=== PATIENT | male | born 1965 | race Caucasian/White ===

== ENCOUNTER 2021-08-09 21:55 | Emergency (ER) | payer BC ==
[2021-08-09] MEDS ORDERED: FENTANYL CITR 100 MCG/2 ML ONE (23:15)
[2021-08-09] MEDS ORDERED: ONDANSETRON 4 MG/2 ML VIAL ONE (23:15)
[2021-08-09 23:28] LABS: Absolute Lymphocytes (CBC) 1.2 K/uL (0.7-4.9); Lymphocytes % 12.1 % (15.3-44.8); MCV 89.9 fL (80-100); MPV 6.9 fL (7.6-11.3); RBC Red Blood Cell Count 4.56 M/uL (4.33-5.43)
[2021-08-09 23:59] LABS: Albumin 3.9 g/dL (3.4-5.0); Bilirubin Total 0.4 mg/dL (0.2-1.0); Potassium 4.2 mmol/L (3.5-5.1)
[2021-08-10 00:32] LABS: Urine Blood 3+ (Negative); Urine Glucose Negative (Negative); Urine Protein Negative (Negative); Urine pH 5.5 (5.0-7.0)
--- NOTE | 2021-08-10 02:58 | ER ---
Nurse's Notes [facility] Name: Etienne Mack IV Age: 56 yrs Sex: Male : 1965 Arrival Date: 08/09/2021 Time: 22:03 Bed 18 Private MD: Diagnosis: Lower abdominal pain, unspecified;Hydronephrosis with renal and ureteral calculous obstruction-3 mm left UVJ Presentation: 08/09 22:09 Chief complaint: Patient states: "I have been feeling bad all day. I thought it was the tw5 heat, but around 6:30 I drank a little bit of water. I got really nauseous and clammy. Now I am having intense sharp crampy pain in my abdomen, the pain has radiated to my lower back.". Coronavirus screen: Vaccine status:. Ebola Screen: Patient negative for fever greater than or equal to 101.5 degrees Fahrenheit, and additional compatible Ebola Virus Disease symptoms Patient denies exposure to infectious person. Patient denies travel to an Ebola-affected area in the 21 days before illness onset. Initial Sepsis Screen: Does the patient meet any 2 criteria? No. Patient's initial sepsis screen is negative. Does the patient have a suspected source of infection? No. Patient's initial sepsis screen is negative. Risk Assessment: Do you want to hurt yourself or someone else? Patient reports no desire to harm self or others. Onset of symptoms was August 09, 2021 at 18:30. 22:09 Method Of Arrival: Ambulatory tw5 22:09 Acuity: COURTNEY 3 tw5 Triage Assessment: 22:13 General: Appears uncomfortable, Behavior is calm, cooperative, appropriate for age. tw5 Pain: Complains of pain in abdomen Pain currently is 9 out of 10 on a pain scale. GI: Reports nausea. 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 - Social history:: Smoking status: Patient denies any tobacco usage or history of. Screenin/03 02:47 Abuse screen: Denies threats or abuse. Nutritional screening: No deficits noted. ll3 Tuberculosis screening: No symptoms or risk factors identified. Fall Risk No fall in past 12 months (0 pts). No secondary diagnosis (0 pts). IV access (20 points). Ambulatory Aid- None/Bed Rest/Nurse Assist (0 pts). Gait- Normal/Bed Rest/Wheelchair (0 pts) Mental Status- Oriented to own ability (0 pts). Total Orozco Fall Scale indicates No Risk (0-24 pts). Assessment: 08/09 22:39 General: Appears uncomfortable, Behavior is calm, cooperative. Pain: Complains of pain ll3 in left lower quadrant and right lower quadrant Pain currently is 8 out of 10 on a pain scale. Neuro: Level of Consciousness is awake, alert, obeys commands, Oriented to person, place, time, situation. Respiratory: Respiratory effort is even, unlabored, Respiratory pattern is regular, symmetrical. GI: Bowel sounds present X 4 quads. Abdomen is tender to palpation in right lower quadrant and left lower quadrant Reports nausea, "my abdomen feels hard as a rock". 23:39 Reassessment: No changes from previously documented assessment. Patient and/or family ll3 updated on plan of care and expected duration. Pain level reassessed. Patient is alert, oriented x 3, equal unlabored respirations, skin warm/dry/pink. 08/10 00:24 Reassessment: No changes from previously documented assessment. Patient and/or family ll3 updated on plan of care and expected duration. Pain level reassessed. Patient is alert, oriented x 3, equal unlabored respirations, skin warm/dry/pink. 01:30 Reassessment: No changes from previously documented assessment. Patient and/or family ll3 updated on plan of care and expected duration. Pain level reassessed. Patient is alert, oriented x 3, equal unlabored respirations, skin warm/dry/pink. 02:32 Reassessment: No changes from previously documented assessment. Patient and/or family ll3 updated on plan of care and expected duration. Pain level reassessed. Patient is alert, oriented x 3, equal unlabored respirations, skin warm/dry/pink. Vital Signs: 08/09 22:09 BP 166 / 100; Pulse 93; Resp 12; Temp 98.2; Pulse Ox 99% ; Weight 122.47 kg; Height 5 tw5 ft. 10 in. (177.80 cm); Pain 9/10; 23:00 BP 155 / 84; Pulse 78; Resp 16; Pulse Ox 96% on R/A; ll3 0703 00:24 BP 171 / 98; Pulse 84; Resp 17; Pulse Ox 95% on R/A; ll3 01:30 BP 166 / 83; Pulse 65; Resp 16; Pulse Ox 96% on R/A; ll3 02:32 BP 165 / 85; Pulse 72; Resp 16; Pulse Ox 96% on R/A; ll3 04:22 BP 140 / 76; Pulse 77; Resp 16; Pulse Ox 97% on R/A; ll3 08/09 22:09 Body Mass Index 38.74 (122.47 kg, 177.80 cm) tw5 ED Course: 08/09 22:03 Patient arrived in ED. am2 22:12 Triage completed. tw5 22:13 Arm band placed on left wrist. tw5 22:30 Juan Osborne PA is PHCP. [facility] 22:30 Davon Hampton MD is Attending Physician. [facility] 23:00 No provider procedures requiring assistance completed. Inserted saline lock: 22 gauge ll3 in right antecubital area, using aseptic technique. Blood collected. 08/10 00:24 Hedy Win, RN is Primary Nurse. 3 01:34 CT Abd/Pelvis - IV Contrast Only In Process Unspecified. EDMS 02:47 Patient has correct armband on for positive identification. Bed in low position. Call ll3 light in reach. Side rails up X 1. Adult w/ patient. 02:57 Higinio Ponce MD is Referral Physician. mony 04:21 IV discontinued, intact, bleeding controlled, No redness/swelling at site. Pressure ll3 dressing applied. Administered Medications: 08/09 23:24 Drug: Zofran (Ondansetron) 4 mg Route: IVP; Site: right antecubital; ll3 08/10 00:46 Follow up: Response: No adverse reaction 3 08/09 23:24 Drug: fentaNYL (PF) 50 mcg Route: IVP; Site: right antecubital; ll3 08/10 00:46 Follow up: Response: No adverse reaction; Marked relief of symptoms ll3 03:15 Drug: Flomax (tamsulosin) 0.4 mg Route: PO; ll3 04:20 Follow up: Response: No adverse reaction ll3 03:15 Drug: Cipro (ciprofloxacin) 500 mg Route: PO; ll3 04:20 Follow up: Response: No adverse reaction ll3 03:20 Drug: Ketorolac 30 mg Route: IVP; Site: right antecubital; ll3 04:21 Follow up: Response: No adverse reaction ll3 03:22 Drug: NS 0.9% 1000 ml Route: IV; Rate: 1 bolus; Site: right antecubital; ll3 04:21 Follow up: Response: No adverse reaction; IV Status: Completed infusion; IV Intake: ll3 1000ml Medication: 02:48 VIS not applicable for this client. ll3 Intake: 04:21 IV: 1000ml; Total: 1000ml. ll3 Outcome: 02:58 Discharge ordered by MD. sykes 04:21 Discharged to home ambulatory, with significant other. ll3 04:21 Condition: stable 04:21 Discharge instructions given to patient, significant other, Instructed on discharge instructions, follow up and referral plans. medication usage, Demonstrated understanding of instructions, follow-up care, medications, Prescriptions given X 4. 04:22 Patient left the ED. ll3 Signatures: Dispatcher [employer] Davon Schafer MD MD cha Mickail, Joel, PA PA jmm Moreno, Amanda am2 Wood, Tiffany tw5 Hedy Win RN RN ll3
--- NOTE | 2021-08-10 02:59 | EDPHYS ---
Physician Documentation [facility] Name: Etienne Mack IV Age: 56 yrs Sex: Male : 1965 Arrival Date: 08/09/2021 Time: 22:03 Bed 18 Private MD: TERA Physician Davon Hampton HPI: 08/10 00:58 This 56 yrs old Male presents to ER via Ambulatory with complaints of Abdominal Pain, jmm Back Pain, Fever, Nausea. 00:58 The patient presents with abdominal pain. Onset: The symptoms/episode began/occurred jmm acutely, today, at 16:00. The symptoms radiate to Associated signs and symptoms: Pertinent positives: dysuria, testicular pain, Pertinent negatives: vomiting. Patient states developed lower abdominal pain, nausea around 4 pm. Unable to have bowel movement. Pain is intense and intermittent and never completely resolved. Denies similar episodes in the past. 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 - Social history:: Smoking status: Patient denies any tobacco usage or history of. ROS: 08/10 00:58 Constitutional: Negative for fever, chills, and weight loss, Cardiovascular: Negative jmm for chest pain, palpitations, and edema, Respiratory: Negative for shortness of breath, cough, wheezing, and pleuritic chest pain. Abdomen/GI: Positive for abdominal pain. Back: Positive for radiated pain. All other systems are negative. Exam: 00:58 Constitutional: This is a well developed, well nourished patient who is awake, alert, jmm and in no acute distress. Head/Face: atraumatic. Eyes: EOMI, no conjunctival erythema appreciated ENT: Moist Mucus Membranes Neck: Trachea midline, Supple Chest/axilla: Normal chest wall appearance and motion. Cardiovascular: Regular rate and rhythm. No edema appreciated Respiratory: Normal respirations, no respiratory distress appreciated 00:58 Back: Normal ROM Skin: General appearance color normal MS/ Extremity: Moves all extremities, no obvious deformities appreciated, no edema noted to the lower extremities Neuro: Awake and alert Psych: Behavior is normal, Mood is normal, Patient is cooperative and pleasant 00:58 Abdomen/GI: Inspection: abdomen appears normal, Bowel sounds: normal, Palpation: soft, mild abdominal tenderness, in the right lower quadrant and left lower quadrant. Vital Signs: 08/09 22:09 BP 166 / 100; Pulse 93; Resp 12; Temp 98.2; Pulse Ox 99% ; Weight 122.47 kg; Height 5 tw5 ft. 10 in. (177.80 cm); Pain 9/10; 23:00 BP 155 / 84; Pulse 78; Resp 16; Pulse Ox 96% on R/A; ll3 08/10 00:24 BP 171 / 98; Pulse 84; Resp 17; Pulse Ox 95% on R/A; ll3 01:30 BP 166 / 83; Pulse 65; Resp 16; Pulse Ox 96% on R/A; ll3 02:32 BP 165 / 85; Pulse 72; Resp 16; Pulse Ox 96% on R/A; ll3 04:22 BP 140 / 76; Pulse 77; Resp 16; Pulse Ox 97% on R/A; ll3 08/09 22:09 Body Mass Index 38.74 (122.47 kg, 177.80 cm) tw5 MDM: 08/09 22:30 Patient medically screened. [facility] 08/10 01:17 Data reviewed: vital signs, nurses notes. [facility] 08/09 22:31 Order name: CBC with Diff; Complete Time: 23:38 [facility] 08/09 22:31 Order name: CMP; Complete Time: 00:02 [facility] 08/09 22:31 Order name: Lipase; Complete Time: 00:02 [facility] 08/09 22:31 Order name: CT Abd/Pelvis - IV Contrast Only [facility] 08/10 00:32 Order name: Urine Dipstick-Ancillary; Complete Time: 00:33 [facility] 08/09 22:31 Order name: IV Saline Lock; Complete Time: 23:24 [facility] 08/09 22:31 Order name: Labs collected and sent; Complete Time: 23:24 [facility] 08/09 22:31 Order name: Urine Dipstick-Ancillary (obtain specimen); Complete Time: 00:47 [facility] Administered Medications: 08/09 23:24 Drug: Zofran (Ondansetron) 4 mg Route: IVP; Site: right antecubital; ll3 08/10 00:46 Follow up: Response: No adverse reaction ll3 08/09 23:24 Drug: fentaNYL (PF) 50 mcg Route: IVP; Site: right antecubital; ll3 08/10 00:46 Follow up: Response: No adverse reaction; Marked relief of symptoms ll3 03:15 Drug: Flomax (tamsulosin) 0.4 mg Route: PO; ll3 04:20 Follow up: Response: No adverse reaction ll3 03:15 Drug: Cipro (ciprofloxacin) 500 mg Route: PO; ll3 04:20 Follow up: Response: No adverse reaction ll3 03:20 Drug: Ketorolac 30 mg Route: IVP; Site: right antecubital; ll3 04:21 Follow up: Response: No adverse reaction ll3 03:22 Drug: NS 0.9% 1000 ml Route: IV; Rate: 1 bolus; Site: right antecubital; ll3 04:21 Follow up: Response: No adverse reaction; IV Status: Completed infusion; IV Intake: ll3 1000ml Disposition Summary: 08/10/21 02:58 Discharge Ordered Location: Home mony Problem: new mony Symptoms: have improved mony Condition: Stable mony Diagnosis - Lower abdominal pain, unspecified mony - Hydronephrosis with renal and ureteral calculous obstruction - 3 mm left UVJ mony Followup: [facility] - With: Private Physician - When: 2 - 3 days - Reason: Recheck today's complaints, Continuance of care, Re-evaluation by your physician Followup: mony - With: Higinio Ponce MD - When: 2 - 3 days - Reason: Recheck today's complaints, Re-evaluation by your physician Discharge Instructions: - Flank Pain, Adult mony - Kidney Stones mony - Discharge Summary Sheet [facility] - Kidney Stones, [id number] mony - Hydronephrosis mony - Dietary Guidelines to Help Prevent Kidney Stones mony - Abdominal Pain, Adult [facility] Forms: - Medication Reconciliation Form mony - Thank You Letter mony - Antibiotic Education mony - Prescription Opioid Use mony Prescriptions: - tamsulosin 0.4 mg Oral capsule - take 1 capsule by ORAL route once daily 1/2 hour following the same meal each mony day; 30 capsule; Refills: 0, Product Selection Permitted - Zofran 4 mg Oral Tablet - take 1 tablet by ORAL route every 12 hours As needed; 20 tablet; Refills: 0, [facility] Product Selection Permitted - Cipro 500 mg Oral Tablet - take 1 tablet by ORAL route every 12 hours for 7 days; 14 tablet; Refills: 0, [facility] Product Selection Permitted - Tramadol 50 mg Oral Tablet - take 2 tablet by ORAL route every 6 hours as needed; 24 tablet; Refills: 0, [facility] Product Selection Permitted Signatures: Dispatcher [employer] Davon Schafer MD MD cha Mickail, Joel, PA PA jmm Wood, Tiffany tw5 Hedy Win RN RN ll3
[2021-08-10] MEDS ORDERED: CIPROFLOXACIN HCL 500 MG TAB ONE (03:15)
[2021-08-10] MEDS ORDERED: TAMSULOSIN 0.4 MG SR CAP ONE (03:15)
[2021-08-10] MEDS ORDERED: KETOROLAC 30 MG/ML INJ ONE (03:15)
[2021-08-10] MEDS ORDERED: NA CHLORIDE 0.9% 1,000 ML ONE (03:15)
[2021-08-10 04:47] VITALS: TEMP 98.2
[2021-08-10 04:50] VITALS: O2SAT 96
[2021-08-10 04:52] VITALS: BP 165/85
--- NOTE | 2021-08-11 12:09 | RAD REPORT ---
EXAM DESCRIPTION: CT - Abdomen Pelvis W Contrast - 08/10/2021 6:37 am CLINICAL HISTORY: The patient is 56 years old and is Male; lower abdominal pain TECHNIQUE: Axial computed tomography images of the abdomen and pelvis with intravenous contrast. S agittal and coronal reformatted images were created and reviewed. This CT exam was performed using one or more of the following dose reduction techniques: automated exposure control, adjustment of t he mA and/or kV according to patient size, and/or use of iterative reconstruction technique. COMPARISON: No relevant prior studies available. FINDINGS: Lung bases: Unremarkable. No mass. No consolidation. ABDOMEN: Liver: Unremarkable. No mass. Gallbladder and bile ducts: Unremarkable. No calcified stones. No ductal dilation. Pancreas: Unremarkable. No mass. No ductal dilation. Spleen: Calcified granulomas in the spleen. Adrenals: Unremarkable. No mass. Kidneys and ureters: 3 mm stone in the lower left ureter near the left UVJ. Mild left hydroureter onephrosis and perinephric/periureteral stranding. Nonobstructing calcification in the right kidney. Stomach and bowel: Unremarkable. No obstruction. No mucosal thickening. PELVIS: Appendix: No findings to suggest acute appendicitis. Bladder: Unremarkable. No mass. Reproductive: Unremarkable as visualized. ABDOMEN and PELVIS: Intraperitoneal space: Unremarkable. No free air. No significant fluid collection. Bones/joints: No acute fracture. No dislocation. Soft tissues: Fat-containing inguinal hernias bilaterally. Vasculature: Unremarkable. No abdominal aortic aneurysm. Lymph nodes: Unremarkable. No enlarged lymph nodes. IMPRESSION: 3 mm stone in the lower left ureter near the left UVJ. Mild left hydroureteronephrosis a nd perinephric/periureteral stranding. Electronically signed by: Elias Carter MD 08/10/2021 2:51 AM CDT Due to temporary technical issues with the PACS/Fluency reporting system, reports are being signed by the in house radiologists without review as a courtesy to insure prompt reporting. The interpreting radiologist is fully responsible for the content of the report.
== END 2021-08-10 04:22 | disposition home or self-care (01) ==
LOC: ER 21:55
DX: N13.2 Hydronephrosis with renal and ureteral calculous obstruction (principal); Z88.0 Allergy status to penicillin; Z88.5 Allergy status to narcotic agent; Z85.89 Personal history of malignant neoplasm of other organs and systems
CPT/HCPCS: 96361; 85025; 36415; 81003; 83690; 80053; 74177; 96375; 96374; 99284; Q9967; J3010; J7030; J2405

== ENCOUNTER 2023-08-04 22:57 | Emergency (ER) | payer BC ==
--- OUTSIDE RECORDS SUMMARY | 2023-08-04 22:59 | XMS REPORT | Clinical Summary ---
Author Name Unknown Organization [facility] [place] Address [address] [place] [address] Care Team Providers Care Senior Asic Design Engineer Name Role Phone Estefanía Naranjo MD Primary Care Provider [phone] Efren Maciel MD Unavailable [phone] Michael Mata MD Unavailable [phone] Oriana Rene MD Unavailable [email or web address] Estefanía Naranjo MD Unavailable [phone] Ernestine Tony MD Unavailable [phone] Shira Tyson MD Unavailable [phone] Marie Troy APRN Unavailable Mac Sanchez MD Unavailable Sunny Luna MD Unavailable Allergies Active Allergy Reactions Criticality Noted Date Comments Codeine Sulfate Other (See Comments) High 04/15/2015 Extreme nausea Hydrocodone-Acetaminoph en Anaphylaxis,Swelling High 04/15/2015 Throat and tongue swelling Penicillins Rash High 04/15/2015 Poison Marli Extract Rash High 04/15/2015 Medications Medication Sig Dispensed Refills Start Date End Date Status bepotastine besilate (BEPREVE) 1.5 % dropIndications:Pre glaucoma of bilateral eyes, not otherwise specified,Allergic conjunctivitis of bilateral eyes,Squamous cell carcinoma of gum Administer 1 drop to both eyes twice daily. 10 mL 3 9 Active Additional Information Patient not taking.Reason: No longer taking, Reported on 10/31/2018 azelastine (OPTIVAR) 0.05% ophthalmic solutionIndications :Allergic conjunctivitis of bilateral eyes Administer 1 drop to both eyes twice daily. 6 mL 9 Active Additional Information Patient not taking.Reason: No longer taking, Reported on 10/31/2018 amLODIPine (NORVASC) 5 mg tabletIndications:H ypertension Take 1 tablet (5 mg) by mouth twice daily. 180 tablet 1 9 Active losartan (COZAAR) 50 mg tabletIndications:H ypertension Take 1 tablet (50 mg) by mouth twice daily. 180 tablet 1 9 Active atorvastatin (LIPITOR) 10 mg tabletIndications:H yperlipidemia, not otherwise specified TAKE ONE TABLET BY MOUTH AT BEDTIME 90 tablet 2 0 Active polyethylene glycol-electrolytes (NULYTELY) 420 g solutionIndications :Colonoscopy planned Mix as directed and drink as directed. 4000 mL 3 Active polyethylene glycol-electrolytes (NULYTELY) 420 g solutionIndications :Colonoscopy planned Mix as directed and drink as directed. 4000 mL 4 Active fluticasone (FLONASE) 50 mcg/spray nasal spray Inhale into each nostril. 02/24/19 24 Discontinued PREDNISOLONE ACETATE OPHTHALMIC Apply to eye. 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 Encounters Date Type Department Care Team Description 03/09/2023 Hospital Encounter [facility] [address] [place] [address] Main [facility], 5th [place] [address] Johnny Vilchis MD 03/08/2023 4:30 PM CUSTOMER SOLUTIONS COORDINATOR POEM Appointments [facility] [address] [place] [address] Main [facility], 6th [place] [address] Estefanía Naranjo MD 03/08/2023 Prep for Procedure [facility] [address] [place] [address] Main [facility], 5th [place] [address] Sissy Scott, EQUIPMENT OPERATING ENGINEER Personal history of colonic polyp (Primary Dx) 03/08/2023 Prep for Procedure [facility] [address] [place] [address] Main [facility], 5th [place] [address] Sissy Scott, EQUIPMENT OPERATING ENGINEER 03/06/2023 11:59 PM CUSTOMER SOLUTIONS COORDINATOR Anesthesia Event [facility] [address] [place] [address], 6th [place] [address] Rachel Mccray RN 02/12/2023 Refill [facility] - Gastroenterology, Hepatology & Nutrition [address] [place] [address], 7th Floor Elevator [place] [id number] Bettie Corbin MA Colonoscopy planned (Primary Dx) 10/26/2022 11:59 PM CDT Anesthesia Event [facility] [address] [place] [address], [facility] [place] [address] Sahra Patino RN 10/15/2022 Refill [facility] - Gastroenterology, Hepatology & Nutrition [address] [place] [place] [address], [facility] [place] [address] Bettie Corbin MA Colonoscopy planned (Primary Dx) after 08/04/2022 Surgical History Surgery Date Site/Laterality Comments EXCISION WIDE LOCAL FACIAL AREA 04/03/2015 Midline SCC on midline maxillary gingiva NJ EXC LESION MUCOSA&SBMCSL VESTIBULE CPLX EXC MUSC 06/03/2016 Neck/Midline Procedure: WLE of anterior maxillary gingiva; Surgeon: Estefanía Naranjo MD; Location: MAIN OR; Service: [facility] - HEAD & NECK SURGERY Medical devices from this surgery are in the Medical Devices section. NJ IMPLNT BIO IMPLNT FOR SOFT TISSUE REINFORCEMENT 06/03/2016 Midline Procedure: IMPLANTATION OF BIOLOGIC IMPLANT (EG, ACELLULAR DERMAL MATRIX) FOR SOFT TISSUE REINFORCEMENT, [employer] [id number]; Surgeon: Estefanía Naranjo MD; Location: MAIN OR; Service: [facility] - HEAD & NECK SURGERY Medical devices from this surgery are in the Medical Devices section. 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 c olon cancer Throat cancer Paternal Grandmother Relation Name Status Comments Maternal Grandfather Paternal Grandmother Social History Tobacco Use Types Packs/Day Years Used Date Smoking Tobacco: Never Smokeless Tobacco: Never Tobacco Cessation:Counseling Given: No Alcohol Use Standard Drinks/Week Comments No 0 (1 standard drink = 0.6 oz pur e alcohol) Sex and Gender Information Value Date Recorded Sex Assigned at Male 06/08/2018 2:03 PM CDT Gender Identity Male 10/31/2018 9:24 AM CDT Sexual Orientation Straight 06/08/2018 2: 03 PM CDT Obstetrics History Plan of Treatment Health Maintenance Due Date Last Done Comments COVID-19 Vaccine ( season) 10/09/202206/2020, 02/16/2020 Influenza Vaccine 10/10/2023 Medical Devices Implanted Type Area Communication Coordinator Device Identifier Shelf Expiration Date Model / Serial / Lot Bilayer Wound Dressing 2?X2? - [id number] Implanted:Qty: 1 on 06/03/2016 by Estefanía Naranjo MD at [facility] Tissue [employer] SURG 01/07/2018 BMW-2020 / / [id number] Description:Implanted on the [employer] Advance Directives * Full Code (Latest Code Status on File) Date Activated Date Inactivated Comments 06/03/2016 11:03 AM 06/03/2016 6:14 PM Care Teams Senior Asic Design Engineer Relationship Specialty Start Date End Date Estefanía Naranjo MD [address] [place] [id number] [email or web address] PCP - General 04/10/15 Efren Maciel MD [address] [place] [id number] PCP - External Primary Care Provider 04/15/15 Michael Mata MD [address] [place] [id number] [email or web address] Physician 04/17/15 Oriana Rene MD [email or web address] Physician 04/17/15 Estefanía Naranjo MD [address] [place] [id number] [email or web address] Physician 04/17/15 Ernestine Tony MD [address] [place] [id number] [email or web address] Consulting Physician Ophthalmology 06/15/17 Shira Tyson MD [address] [place] [id number] [email or web address] Consulting Physician Head and Neck Surgery 06/10/17 Marie Troy APRN [address] [place] [id number] [email or web address] Nurse Practitioner Gastroenterology, Hepatology and Nutrition 08/18/17 Mac Sanchez MD [address] [place] [id number] [email or web address] Consulting Physician Dermatology 08/18/17 Sunny Lnua MD [address] [place] [phone] [email or web address] Consulting Physician Internal Medicine 10/31/18
[2023-08-04] MEDS ORDERED: LABETALOL HCL 100 MG/20 ML ONE (23:53)
[2023-08-04] MEDS ORDERED: KETOROLAC 30 MG/ML INJ ONE (23:53)
[2023-08-05 00:32] LABS: Absolute Eosinophils 0.1 K/uL (0-0.5); Absolute Monocytes 0.8 K/uL (0.1-1.3); Absolute Neutrophil 4.7 K/uL (1.8-8.0); Basophils % 0.6 % (0-1.3); Eosinophils % 1.4 % (0-4.4); Hematocrit 41.2 % (39.6-49.0); Hemoglobin 14.2 g/dL (13.6-17.9); Lymphocytes % 15.5 % (15.3-44.8); MCH 31.5 pg (27.0-35.0); MCHC 34.5 g/dL (32.0-36.0); MCV 91.3 fL (80-100); MPV 6.7 fL (7.6-11.3); Monocytes % 11.6 % (3.3-12.3); Neutrophils % 70.9 % (41.7-73.7); Nucleated Red Blood Cells % 0.3 % (0-0); Platelets 260 thou/uL (152-406); RBC Red Blood Cell Count 4.51 M/uL (4.33-5.43); Red Cell Distribution Width 13.4 % (12.1-15.2)
[2023-08-05] MEDS ORDERED: ONDANSETRON 4 MG/2 ML VIAL ONE (00:38)
[2023-08-05] MEDS ORDERED: HYDROMORPHONE HCL 1 MG/ML INJ ONE (00:39)
[2023-08-05 00:42] LABS: Albumin 3.6 g/dL (3.4-5.0); Albumin/Globulin Ratio 0.9 (1.1-1.8); Anion Gap 7.7 mEq/L (5.0-15.0); Bilirubin Direct 0.2 mg/dL (0-0.2); Bilirubin Indirect, Calculated 0.3 mg/dL (0.2-0.8); Bilirubin Total 0.5 mg/dL (0.2-1.0); Globulin 4.2 g/dL (2.3-3.5); Magnesium 1.9 mg/dL (1.6-2.4); Potassium 3.7 mEq/L (3.5-5.1); Protein, Total 7.8 g/dL (6.4-8.2); Troponin High Sensitivity 9.6 pg/mL (<58.9)
[2023-08-05 01:04] LABS: PT Prothrombin Time 13.2 SECONDS (9.4-12.5); Protime INR 1.21
--- NOTE | 2023-08-05 01:15 | EDPHYS ---
Physician Documentation [facility] Name: Etienne Mack IV Age: 58 yrs Sex: Male : 1965 Arrival Date: 08/04/2023 Time: 22:57 Bed 15 Private MD: ED Physician Jerry Tony HPI: 08/03 23:32 This 58 yrs old Male presents to ER via Ambulatory with complaints of Chest Pain, sp3 Headache, Dizziness, Arm Pain. 23:32 58-year-old male with a history of hypertension uncontrolled, prior kidney stone, prior sp3 hyperlipidemia uncontrolled now presents with headache starting today after being outside and feelings of being dehydrated. Patient denies any thunderclap event or sudden onset of symptoms. Headache is mainly posterior occipital region. He denies any trauma. He denies any changes in vision or other senses, neck pain or stiffness, chest pain, shortness of breath, abdominal pain, syncope, near syncope, other focal neurological deficit, or any other signs or symptoms on ROS at this time.. Historical: - Allergies: 23:24 Codeine; ss 23:24 HYDROCODONE; ss 23:24 PENICILLINS; ss - PMHx: 23:24 cancer- gum cancer; Hypertensive disorder; Kidney stone; ss - PSHx: 23:24 back; cancer removal- mouth x2; neck-x 2; ss ROS: 23:34 Constitutional: Negative for fever, chills, and weight loss, Eyes: Negative for injury, sp3 pain, redness, and discharge, Neck: Negative for injury, pain, and swelling, Cardiovascular: Negative for chest pain, palpitations, and edema, Respiratory: Negative for shortness of breath, cough, wheezing, and pleuritic chest pain, Abdomen/GI: Negative for abdominal pain, nausea, vomiting, diarrhea, and constipation, Back: Negative for injury and pain, MS/Extremity: Negative for injury and deformity, Skin: Negative for injury, rash, and discoloration, Psych: Negative for depression, anxiety, suicide ideation, homicidal ideation, and hallucinations, Allergy/Immunology: Negative for hives, rash, and allergies, Endocrine: Negative for neck swelling, polydipsia, polyuria, polyphagia, and marked weight changes, Hematologic/Lymphatic: Negative for swollen nodes, abnormal bleeding, and unusual bruising, 23:34 All other systems are negative, Exam: 23:34 Constitutional: This is a well developed, well nourished patient who is awake, alert, sp3 and in no acute distress. Head/Face: Normocephalic, atraumatic. Eyes: Pupils equal round and reactive to light, extra-ocular motions intact. Lids and lashes normal. Conjunctiva and sclera are non-icteric and not injected. Cornea within normal limits. Periorbital areas with no swelling, redness, or edema. ENT: Nares patent. No nasal discharge, no septal abnormalities noted. External auditory canals are clear. Oropharynx with no redness, swelling, or masses, exudates, or evidence of obstruction, uvula midline. Mucous membranes moist. Neck: Trachea midline, no thyromegaly or masses palpated, and no cervical lymphadenopathy. Supple, full range of motion without nuchal rigidity, or vertebral point tenderness. No Meningismus. Chest/axilla: Normal chest wall appearance and motion. Nontender with no deformity. No lesions are appreciated. Cardiovascular: Regular rate and rhythm with a normal S1 and S2. No gallops, murmurs, or rubs. Normal PMI, no JVD. No pulse deficits. Respiratory: Lungs have equal breath sounds bilaterally, clear to auscultation and percussion. No rales, rhonchi or wheezes noted. No increased work of breathing, no retractions or nasal flaring. Abdomen/GI: Soft, non-tender, with normal bowel sounds. No distension or tympany. No guarding or rebound. No evidence of tenderness throughout. Back: No spinal tenderness. No costovertebral tenderness. Full range of motion. Skin: Warm, dry with normal turgor. Normal color with no rashes, no lesions, and no evidence of cellulitis. MS/ Extremity: Pulses equal, no cyanosis. Neurovascular intact. Full, normal range of motion. Neuro: Awake and alert, GCS 15, oriented to person, place, time, and situation. Cranial nerves II-XII grossly intact. Motor strength 5/5 in all extremities. Sensory grossly intact. Cerebellar exam normal. Normal gait. Psych: Awake, alert, with orientation to person, place and time. Behavior, mood, and affect are within normal limits. 08/04 00:17 ECG was reviewed by the Attending Physician. EKG demonstrates normal sinus rhythm at 87 sp3 bpm with normal intervals, normal QRS, normal axis, nonspecific diffuse ST's ST changes without evidence of acute ischemia. Vital Signs: 08/03 23:22 BP 222 / 126; Pulse 103; Resp 18; Temp 98.7(A); Pulse Ox 99% on R/A; ss 08/04 00:00 BP 168 / 93; Pulse 84; Resp 13; Pulse Ox 98% ; jj7 00:15 BP 156 / 88; Pulse 83; Resp 15; Pulse Ox 97% ; jj7 00:30 BP 147 / 89; Pulse 82; Resp 14; Pulse Ox 98% ; jj7 01:30 BP 140 / 79; Pulse 84; Resp 16; Temp 97.6; Pulse Ox 98% ; Pain 0/10; jj7 01:30 Pain Scale: Adult jj7 MDM: 08/03 23:12 Patient medically screened. sp3 23:35 Data reviewed: vital signs, nurses notes, old medical records, lab test result(s), EKG, sp3 radiologic studies. ED course: 58-year-old male with headache and hypertensive urgency. Differential diagnosis includes hypertension induced headache, intracranial hemorrhage, subarachnoid hemorrhage, electrolyte abnormality, possible endorgan damage, among others. I met highly suspicious for sepsis or shock. Workup will include CT scan of the head stat, laboratory values, EKG and general supportive care. Medications include ketorolac IV and labetalol IV for symptomatic control. Disposition pending workup and patient course.. 08/04 00:25 ED course: CT scan negative. Patient is improved and blood pressure systolic is now sp3 down to 163. Remainder of labs are pending.. 01:13 ED course: Patient much improved after Dilaudid. Laboratory values reviewed and sp3 demonstrate no significant abnormality. Patient will be discharged home and follow-up with a new PCP to handle hypertension and his other potential illnesses.. 08/03 23:25 Order name: Basic Metabolic Panel; Complete Time: 00:57 sp3 08/03 23:25 Order name: CBC with Diff; Complete Time: 00:57 sp3 08/03 23:25 Order name: LFT's; Complete Time: 00:57 sp3 08/03 23:25 Order name: Magnesium; Complete Time: 00:57 sp3 08/03 23:25 Order name: NT PRO-BNP; Complete Time: 00:57 sp3 08/03 23:25 Order name: PT-INR; Complete Time: 01:09 sp3 08/03 23:25 Order name: Troponin HS; Complete Time: 00:57 sp3 08/03 23:25 Order name: XRAY Chest (1 view) sp3 08/03 23:25 Order name: CT Head Brain wo Cont sp3 08/03 23:25 Order name: Cardiac monitoring; Complete Time: 23:34 sp3 08/03 23:25 Order name: EKG - Nurse/Tech; Complete Time: 00:59 sp3 08/03 23:25 Order name: IV Saline Lock; Complete Time: 23:59 sp3 08/03 23:25 Order name: Labs collected and sent; Complete Time: 23:59 sp3 08/03 23:25 Order name: O2 Per Protocol; Complete Time: 23:59 sp3 08/03 23:25 Order name: O2 Sat Monitoring; Complete Time: 23:59 3 Administered Medications: 00:00 Drug: Ketorolac IVP 15 mg IVP once Route: IVP; Site: right antecubital; jj7 00:43 Follow up: Response: Pain is unchanged, physician notified jj7 00:00 Drug: Labetalol IV 10 mg IV at calculated rate once Route: IV; Rate: calculated rate; jj7 Site: right antecubital; 00:44 Follow up: Response: Blood pressure is lowered jj7 00:46 Drug: Ondansetron IVP 4 mg IVP once; over 2 minutes Route: IVP; Site: right antecubital;jj7 01:47 Follow up: Response: Marked relief of symptoms jj7 00:47 Drug: HYDROmorphone IVP 1 mg IVP once Route: IVP; Site: right antecubital; jj7 01:47 Follow up: Response: Marked relief of symptoms; Pain is decreased jj7 Disposition Summary: 08/05/23 01:14 Discharge Ordered Notes: Location: Home sp3 Condition: Stable sp3 Diagnosis - Hypertension, headache sp3 Followup: sp3 - With: Private Physician - When: Upon discharge from the Emergency Department - Reason: Recheck today's complaints Discharge Instructions: - Discharge Summary Sheet sp3 - General Headache Without Cause sp3 - Hypertension, Adult sp3 Forms: - Medication Reconciliation Form sp3 - Antibiotic Education sp3 - Prescription Opioid Use sp3 - Patient Portal Instructions sp3 - Leadership Thank You Letter sp3 Signatures: Dispatcher [employer] EDMS Abigail Morrison, RN RN ss Jerry Tony MD MD sp3 Mart Lyles RN RN jj7 Corrections: (The following items were deleted from the chart) 08/03 23:26 23:26 BASIC METABOLIC PANEL+C.LAB.BRZ ordered. EDMS EDMS : 23:26 CBC+H.LAB.BRZ ordered. EDMS EDMS 23: 23:26 HEPATIC FUNCTION+C.LAB.BRZ ordered. EDMS EDMS 23: 23:26 MAGNESIUM+C.LAB.BRZ ordered. EDMS EDMS : 23:26 PROBNP+C.LAB.BRZ ordered. EDMS EDMS 23: 23:26 PROTIME (+INR)+COAG.LAB.BRZ ordered. EDMS EDMS : 23:26 Troponin High Sensitivity+C.LAB.BRZ ordered. EDMS EDMS 23: 23:26 Head Brain Wo Cont+CT.RAD.BRZ ordered. EDMS EDMS
--- NOTE | 2023-08-05 01:15 | ER ---
Nurse's Notes [facility] Name: Etienne Mack IV Age: 58 yrs Sex: Male : 1965 Arrival Date: 08/04/2023 Time: 22:57 Bed 15 Private MD: Diagnosis: Hypertension, headache Presentation: 08/03 23:22 Chief complaint: Patient states: Nasal congestion and headache that began today. L arm ss pain x 1 week. HX of HTN, but has not taken medication in years. Coronavirus screen: Client denies travel out of the [place] in the last 14 days. Ebola Screen: Patient denies exposure to infectious person. Patient denies travel to an Ebola-affected area in the 21 days before illness onset. Initial Sepsis Screen: Does the patient meet any 2 criteria? No. Patient's initial sepsis screen is negative. Does the patient have a suspected source of infection? No. Patient's initial sepsis screen is negative. Risk Assessment: Do you want to hurt yourself or someone else? Patient reports no desire to harm self or others. Onset of symptoms was July 29, 2023. 23:22 Acuity: COURTNEY 2 ss 23:22 Method Of Arrival: Ambulatory ss Historical: - Allergies: 23:24 Codeine; ss 23:24 HYDROCODONE; ss 23:24 PENICILLINS; ss - PMHx: 23:24 cancer- gum cancer; Hypertensive disorder; Kidney stone; ss - PSHx: 23:24 back; cancer removal- mouth x2; neck-x 2; ss Screenin:18 [facility] ED Fall Risk Assessment (Adult) History of falling in the last 3 months, jj7 including since admission No falls in past 3 months (0 pts) Confusion or Disorientation No (0 pts) Intoxicated or Sedated No (0 pts) Impaired Gait No (0 pts) Mobility Assist Device Used No (0 pt) Altered Elimination No (0 pt) Score/Fall Risk Level 0 - 2 = Low Risk Oriented to surroundings, Maintained a safe environment, Educated pt \T\ family on fall prevention, incl call for assistance when getting out of bed. Abuse screen: Denies threats or abuse. Nutritional screening: No deficits noted. Nutritional screening: No deficits noted. Nutritional screening: No deficits noted. Tuberculosis screening: No symptoms or risk factors identified. Assessment: 23:18 General: Appears in no apparent distress. comfortable, Behavior is calm, cooperative, jj7 appropriate for age. Pain: Complains of pain in back of head Pain does not radiate. Pain radiates to left arm Pain began gradually. Neuro: Reports headache occipital area. Cardiovascular: Reports HTN. Vital Signs: 23:22 BP 222 / 126; Pulse 103; Resp 18; Temp 98.7(A); Pulse Ox 99% on R/A; ss 08/04 00:00 BP 168 / 93; Pulse 84; Resp 13; Pulse Ox 98% ; jj7 00:15 BP 156 / 88; Pulse 83; Resp 15; Pulse Ox 97% ; jj7 00:30 BP 147 / 89; Pulse 82; Resp 14; Pulse Ox 98% ; jj7 01:30 BP 140 / 79; Pulse 84; Resp 16; Temp 97.6; Pulse Ox 98% ; Pain 0/10; jj7 01:30 Pain Scale: [facility] ED Course: 08/03 23:03 Patient arrived in ED. gm2 23:06 Jerry Tony MD is Attending Physician. sp3 23:18 Mart Lyles, RN is Primary Nurse. jj7 23:18 Patient has correct armband on for positive identification. Placed in gown. Bed in low jj7 position. Call light in reach. Adult w/ patient. Provided Education on: USE OF CALL MURRAY. Client placed on continuous cardiac and pulse oximetry monitoring. NIBP monitoring applied. surveillance monitor on. Pulse ox on. 23:24 Triage completed. ss 23:24 Arm band placed on right wrist. ss 23:37 CT Head Brain wo Cont In Process Unspecified. EDMS 23:47 Inserted saline lock: 20 gauge in right antecubital area, using aseptic technique. jj7 Blood collected. 23:59 Basic Metabolic Panel Sent. jj7 23:59 CBC with Diff Sent. jj7 23:59 LFT's Sent. jj7 23:59 Magnesium Sent. jj7 23:59 NT PRO-BNP Sent. jj7 23:59 PT-INR Sent. jj7 23:59 Troponin HS Sent. jj7 08/04 00:02 XRAY Chest (1 view) In Process Unspecified. EDMS 00:08 EKG done, by ED staff, reviewed by Jerry Tony MD. oe 01:47 No provider procedures requiring assistance completed. IV discontinued, intact, jj7 bleeding controlled, No redness/swelling at site. Pressure dressing applied. Response to oxygen therapy: 98% RA. Administered Medications: 00:00 Drug: Ketorolac IVP 15 mg IVP once Route: IVP; Site: right antecubital; jj7 00:43 Follow up: Response: Pain is unchanged, physician notified j7 00:00 Drug: Labetalol IV 10 mg IV at calculated rate once Route: IV; Rate: calculated rate; j7 Site: right antecubital; 00:44 Follow up: Response: Blood pressure is lowered jj 00:46 Drug: Ondansetron IVP 4 mg IVP once; over 2 minutes Route: IVP; Site: right antecubital;jj7 01:47 Follow up: Response: Marked relief of symptoms j 00:47 Drug: HYDROmorphone IVP 1 mg IVP once Route: IVP; Site: right antecubital; j 01:47 Follow up: Response: Marked relief of symptoms; Pain is decreased j7 Medication: 08/03 23:18 VIS not applicable for this client. j7 Outcome: 08/04 01:14 Discharge ordered by MD. coe3 01:47 Discharged to home ambulatory, with significant other, jj 01:47 Condition: improved 01:47 Discharge instructions given to patient, significant other, Instructed on discharge instructions, follow up and referral plans. Demonstrated understanding of instructions, follow-up care, 01:49 Patient left the ED. j7 Signatures: Dispatcher [employer] EDMS Abigail Morrison, JACQUELINE RN Selvin Bauer Setul, MD MD sp3 Mart Lyles RN RN jj7 Justina Nielson 2 Corrections: (The following items were deleted from the chart) 08/03 23:23 23:18 Pain: Complains of pain in back of head Pain does not radiate. jj7 jj7
[2023-08-05 01:54] VITALS: O2SAT 98
[2023-08-05 02:14] VITALS: BP 140/79; TEMP 97.6
--- NOTE | 2023-08-05 11:23 | RAD REPORT ---
EXAM DESCRIPTION: XR Chest, 1 View CLINICAL HISTORY: The patient is 58 years old and is Male; Chest zunilda TECHNIQUE: Frontal view of the chest. COMPARISON: No relevant prior studies available. FINDINGS: LUNGS: Unremarkable. No consolidation. PLEURAL SPACE: Unremarkable. No pneumothorax. HEART: Unremarkable. No cardiomegaly. MEDIASTINUM: Unremarkable. Normal mediastinal contour. BONES/JOINTS: Unremarkable. No acute fracture. UPPER ABDOMEN: Unremarkable as visualized. IMPRESSION: No acute cardiopulmonary process. Electronically signed by: Eliza Scott MD 08/05/2023 12:14 AM CDT RP Due to temporary technical issues with the PACS/Fluency reporting system, reports are being signed by the in house radiologist without review as a courtesy to ensure prompt reporting. The interpreting r adiologist is fully responsible for the content of the report.
--- NOTE | 2023-08-05 11:24 | RAD REPORT ---
EXAM DESCRIPTION: CT Head Without Intravenous Contrast CLINICAL HISTORY: The patient is 58 years old and is Male; HEADACHE TECHNIQUE: Axial computed tomography images of the head/brain without intravenous contrast. Sagitt al and coronal reformatted images were created and reviewed. This CT exam was performed using one o r more of the following dose reduction techniques: automated exposure control, adjustment of the mA and/or kV according to patient size, and/or use of iterative reconstruction technique. COMPARISON: No relevant prior studies available. FINDINGS: Brain: Unremarkable. No hemorrhage. No significant white matter disease. No edema. Ventricles: Unremarkable. No ventriculomegaly. Bones/joints: Unremarkable. No acute fracture. Soft tissues: Unremarkable. Sinuses: Unremarkable as visualized. Mastoid air cells: Unremarkable as visualized. No mastoid effusion. IMPRESSION: No acute intracranial abnormality. Electronically signed by: Elias Carter MD 08/05/2023 12:02 AM CDT RP 8 Due to temporary technical issues with the PACS/Fluency reporting system, reports are being signed by the in house radiologist without review as a courtesy to ensure prompt reporting. The interpreting r adiologist is fully responsible for the content of the report.
--- NOTE | 2023-08-05 14:07 | EKG ---
Test Date: 2023-08-05 Test Time: 00:04:38 Data Analyst Report Writer: JESSEE MEASUREMENT RESULTS: Intervals: Rate: 87 NJ: 164 QRSD: 80 QT: 346 QTc: 416 [place]: P: 42 NJ: 164 QRS: 15 T: 90 INTERPRETIVE STATEMENTS: Normal sinus rhythm Possible Anterior infarct, age undetermined Abnormal ECG No previous ECG available for comparison Electronically Signed On 08-05-23 14:06:17 CDT by Bishop Darnell
== END 2023-08-05 01:49 | disposition home or self-care (01) ==
LOC: ER 22:57
DX: R51.9 Headache, unspecified (principal); I10 Essential (primary) hypertension; Z88.0 Allergy status to penicillin; Z88.5 Allergy status to narcotic agent
CPT/HCPCS: 93005; 85025; 80048; 36415; 83735; 85610; 80076; 84484; 83880; 70450; 71045; 96375; 96374; 99285; J1170; J2405